=== PATIENT | female | born 1950 | race Caucasian/White ===

== ENCOUNTER → 2017-11-16 | Outpatient (CLI) | payer OTHER ==
[~2017-11-16] VITALS: Ht 167.6 cm; Wt 81.9 kg
[~2017-11-16] MED LIST: ACETAMINOPHEN-1 EAC1 PO; ACETAMINOPHEN325 M1 PO; ACIPHEX PO; ADVIL PM CAPLE1 EACH PO; ALEVE220 MG PO; ASPIR 8181 MG PO; BIOTIN1000 MCG PO; CENTRUM SILVER1 EAC4 PO; CIPRO250 M1 PO; CYFOLEX CAPSUL1 EACH PO; CYMBALTA60 MG PO; FISHOIL PO; GLUCOPHAGE500 MG PO; GLUCOTROL5 MG PO; IBUPROFEN PO; INDOMETHACIN 5050 MG PO; ISOMETHEPT-DIC1 EACH PO; JANUVIA100 MG PO; LODINE400 M1 PO; LORTAB PO; MELATONIN5 M1 PO; MOBIC7.5 MG PO; NORCO 5-325 TA1 EACH PO; NORFLEX100 MG PO; ORPHENADRINE C100 M2 PO; PAMELOR PO; PAMELOR25 MG PO; PREDNISONE 20 M20 MG PO; PROPRANOLOL PO; RELPAX PO; WOMEN'S 50 PLU1 EACH PO; ZANTAC 150MG T150 MG PO; [UNRECOGNIZED DRUG - OTHER] PO
--- NOTE | ~2017-11-16 | HPC ---
[facility] [place] [address] PAIN MANAGEMENT CONSULTATION Name: ADDISONJAYSON ROSE Room #: REG Sarthak Steven#: [id number] Admission: 11/16/17 Attend Phys: Zain Cabello DO Discharge: Date of : 50 Report #: [id number] THIS REPORT FOR: //name// CC: Claude Cabello The patient is a 67-year-old female, prior seen in pain clinic back in July for lumbar radiculopathy status post decompressive laminectomy, axial back pain, myofascial pain. The patient was started on Cymbalta and encouraged with physical activity including Saul Chi via [employer]. Returns to pain clinic today. She is having some ongoing lumbar radicular symptoms. She notes about 4-6 weeks ago without antecedent trauma. She developed pain, right anterior thigh, burning dysesthesia down to the foot. Physical exam shows a pleasant 67-year-old female, somewhat hard of hearing. Vital signs are stable as noted in the EMR. Rises from chair using armrests, antalgic gait. Significant decreased right leg strength to hip flexion, lower extremity extension and dorsiflexion about 3/5, left leg is much stronger 4-5/5. Patellar reflex is diminished on the right compared to the left. Straight leg raising negative, very significant tenderness with rotation of hips. Positive Lainey test, positive distraction, positive Gaenslen's, tenderness over the SI joint as well. ASSESSMENT: 1. Symptomatic lumbar radiculopathy status post decompressive laminectomy, right L3 radicular pain. 2. Component of sacroiliac mediated pain. RECOMMENDATIONS: 1. Right L3-L4 transforaminal epidural injection today. 2. Follow up in 2-3 weeks for reevaluation and consideration for bilateral SI joint injection if indicated clinically. PROCEDURE: Transforaminal lumbar epidural injection under fluoroscopy. PROCEDURE NOTE: After both written and informed consent was obtained including risk of spinal cord damage, infection, increased pain and paralysis, the patient agreed to proceed. The patient was taken to the fluoroscopy suite, placed in a prone position with appropriate abdominal bolstering. After sterile prep with ChloraPrep and sterile drape, a skin wheal with 1% Xylocaine was raised. A 22 gauge 4-1/2 inch epidural Tuohy needle was inserted. From an oblique approach into the posterior-superior aspect of the right L4-L5 neural foramen with continuous pressure on the glass syringe plunger for loss of resistance. Glass syringe was filled with 2 mL of 0.1 Xylocaine. The glass loss of resistance syringe was removed. A low volume extension tubing was connected, negative aspiration was accomplished for cerebrospinal fluid or blood. 1 mL of Omnipaque was injected which showed spread both within the epidural space and laterally [facility] [address] [place] [address] PAIN MANAGEMENT CONSULTATION Name: JAYSON JAIME Room #: REG ASHVIN Steven#: [id number] Admission: 11/16/17 Attend Phys: Zain Cabello DO Discharge: Date of : 50 Report #: [id number] along the nerve root. This was followed with 80 mg of triamcinolone plus 1 mL of 1.5% preservative-free Xylocaine. Needle was partially withdrawn, 0.5 mL of Xylocaine was injected to clear the needle and the needle was removed. The area was cleansed, band-aid was applied. The patient was allowed to ambulate to the recovery room, discharged in good and stable condition. <ELECTRONICALLY SIGNED> By: Zain Cabello DO 11/18/17 0721 1207 [id number] Zain Cabello DO /nt
[2017-11-16 09:51] VITALS: BP 126/76
== END | disposition home or self-care (01) ==
LOC: PAIN 06:51
DX: M54.16 Radiculopathy, lumbar region (principal); M53.3 Sacrococcygeal disorders, not elsewhere classified; M79.1 Myalgia; Z98.890 Other specified postprocedural states; Z79.891 Long term (current) use of opiate analgesic; Z88.8 Allergy status to other drugs, medicaments and biological substances; Z79.82 Long term (current) use of aspirin

== ENCOUNTER → 2017-12-03 | Outpatient (CLI) | payer OTHER ==
[~2017-12-03] VITALS: Ht 167.6 cm; Wt 81.3 kg
--- NOTE | ~2017-12-03 | HPC ---
[facility] [place] [place] [address] PAIN MANAGEMENT CONSULTATION Name: JAYSON JAIME Room #: REG ASHVIN Steven#: [id number] Admission: 12/03/17 Attend Phys: Zain Cabello DO Discharge: Date of : 50 Report #: [id number] THIS REPORT FOR: //name// CC: Claude Cabello The patient is a pleasant 67-year-old female, prior seen in the pain clinic for symptomatic lumbar radiculopathy. She was given a transforaminal L3-L4 epidural injection with incremental improvement of baseline pain. She still has some ongoing pain now in the lower right leg. The prior right L3 radicular symptoms are improving. She still has positive straight leg raise and limited flexion. Symptomatic lumbar radiculopathy with improvement of symptoms following initial injection (the patient notes a 60% relief ongoing, but does again note pain to be a 6 on a VAS primarily in the right low back and lower leg). She has not fallen since last visit. 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 Vital signs stable as noted in the EMR. BMI is 28.9 kg/m2. She is not on blood thinner, is not hypertensive, is not on opiate contract. She does not use tobacco products. ASSESSMENT: Symptomatic lumbar radiculopathy by clinical exam and history. RECOMMENDATIONS: Repeat epidural injection under fluoroscopy today, we will use a midline L3-L4 approach. Follow up in 4 weeks for reevaluation, cancel if doing well. PROCEDURE: Lumbar epidural injection under fluoroscopy. PROCEDURE NOTE: After both written and informed consent to include risk of spinal cord damage, increased pain, weakness and dural puncture, the patient was taken to the fluoroscopy suite, placed in the prone position. After sterile prep and drape, a skin wheal with lidocaine was raised. A 22-gauge epidural Tuohy needle was inserted in the midline at L3-L4 with good loss to resistance. Negative aspiration for cerebrospinal fluid or blood was noted. Then 1 mL of Omnipaque under biplanar fluoroscopy showed good spread within the epidural space. This was followed with 80 mg of triamcinolone plus 1 mL of 1.5% preservative-free Xylocaine, 0.5 mL Xylocaine was then injected to flush the needle; it was removed. The patient was monitored for an appropriate period of time and discharged in good and stable condition. <ELECTRONICALLY SIGNED> By: Zain Cabello DO 12/04/17 0725 1209 1302 Zain Cabello DO /nt
[2017-12-03 10:49] VITALS: BP 135/87
== END | disposition home or self-care (01) ==
LOC: PAIN 10:22
DX: M54.16 Radiculopathy, lumbar region (principal); G89.29 Other chronic pain; M19.90 Unspecified osteoarthritis, unspecified site; Z98.890 Other specified postprocedural states; Z79.891 Long term (current) use of opiate analgesic; Z88.8 Allergy status to other drugs, medicaments and biological substances; Z79.82 Long term (current) use of aspirin; Z79.899 Other long term (current) drug therapy

== ENCOUNTER → 2017-12-24 | Outpatient (CLI) | payer OTHER ==
[~2017-12-24] VITALS: Ht 167.6 cm; Wt 81.2 kg
--- NOTE | ~2017-12-24 | HPC ---
[facility] [place] [address] PAIN MANAGEMENT CONSULTATION Name: ADDISONJAYSON HAILY Room #: REG Sarthak Steven#: [id number] Admission: 12/24/17 Attend Phys: Zain Cabello DO Discharge: Date of : 50 Report #: [id number] THIS REPORT FOR: //name// CC: Claude Cabello HISTORY OF PRESENT ILLNESS: The patient is a 67-year-old female, prior seen in the pain clinic on 12/03/2017. We referred the patient for physical therapy and was given epidural injection for lumbar radicular pain. She returns to pain clinic today noting that the injection afforded no effective relief. She further, however, states that the right leg pain is essentially gone and that new pain is now in the left low back and buttock. She notes that she was actually doing well until she was doing exercises, plank but unfortunately, she is doing this on her bed. Head of the bed was not a firm base, she twisted and fell. When she fell, she had acute exacerbation of pain in the left low back. She notes pain is a 9 on VAS. She presented to [facility], they did x-rays, which showed no changes. She was started on high dose prednisone 20 mg 3 times a day, which she has taken for 2 days with no efficacy. She notes pain again continues at a 9 on a VAS and steady, sharp, constant, radiating into the left buttock and posterior thigh but not down below the leg. PHYSICAL EXAMINATION: GENERAL: Shows 67-year-old female, moderately hard of hearing. VITAL SIGNS: BMI is 28.9 kilograms per meter squared. Blood pressure is elevated 158/99, pulse 114 and respirations 16. MUSCULOSKELETAL: Rises from chair using armrest, markedly antalgic gait, ataxic. Exquisite tenderness over the left SI. Positive Lainey test. Positive Gaenslen's. Positive pelvic distraction test. Lower extremity strength is actually symmetric, though moving the right leg exacerbates the right SI pain. ASSESSMENT: Acute sacroiliac mediated pain. History of lumbar radiculopathy status post decompressive laminectomy, symptoms actually somewhat improved following epidural injection x 2. RECOMMENDATIONS: 1. We will trial hydrocodone 5/325 one tablet 2-3 times a day. The patient cautioned about daytime somnolence, or mental acuity changes, constipation, limit 45 tablets. 2. Left SI joint injection under fluoroscopy today. 3. Refer again for core stabilization due to SI joint dysfunction. PROCEDURE: Left SI joint injection under fluoroscopy. DESCRIPTION OF PROCEDURE: After written informed consent was obtained, the patient was taken to the fluoroscopy suite, placed in prone position. After sterile prep and drape, skin wheal with Xylocaine was raised. A 22-gauge stylet needle was placed to contact the inferior aspect of the left SI joint. Negative [address] [address] PAIN MANAGEMENT CONSULTATION Name: JAYSON JAIME Room #: REG [facility] Maurizio#: [id number] Admission: 12/24/17 Attend Phys: Zain Cabello DO Discharge: Date of : 50 Report #: [id number] aspiration was accomplished. A 1 mL of Omnipaque injected, which showed spread within the SI joint followed with 40 mg triamcinolone plus 2 mL of 0.5% preservative-free bupivacaine. Needle was removed. The area was cleansed, Band-Aids applied. The patient monitored for an appropriate period of time, discharged in good and stable condition. Fluoroscopy time was under 15 seconds. <ELECTRONICALLY SIGNED> By: Zain Cabello DO 12/25/17 0845 [id number] Zain Cabello DO /nt
[2017-12-24 14:07] VITALS: BP 158/99
== END | disposition home or self-care (01) ==
LOC: PAIN 07:16
DX: M53.3 Sacrococcygeal disorders, not elsewhere classified (principal); M54.16 Radiculopathy, lumbar region; Z98.890 Other specified postprocedural states

== ENCOUNTER → 2018-01-08 | Outpatient (CLI) | payer OTHER ==
[~2018-01-08] VITALS: Ht 167.6 cm; Wt 81.6 kg
--- NOTE | ~2018-01-08 | HPC ---
[facility] [place] [address] PAIN MANAGEMENT CONSULTATION Name: JAYSON JAIME Room #: REG ASHVIN Steven#: [id number] Admission: 01/08/18 Attend Phys: Zain Cabello DO Discharge: Date of : 50 Report #: [id number] THIS REPORT FOR: //name// CC: Claude Cabello DATE OF SERVICE: 01/08/2018 PAIN CLINIC NOTE The patient is a 67-year-old female, prior seen in the pain clinic on 12/24/2017. She had had 2 lumbar epidural injections, on 11/16/2017 and again on 12/03/2017 with good improvement of radicular symptoms. Had some left SI mediated pain. We did a left SI joint injection at last visit and referred the patient to physical therapy. Returns to pain clinic today. She is continuing to do physical therapy exercises, SI joint is improving. She does, however, still have some ongoing radicular pain, low back, left leg down to the foot. She rates it as 7 on a VAS exacerbated with standing and walking, is getting some relief with heat and stretching. She is continuing to take rare hydrocodone as well as etodolac p.o. and Cymbalta daily. She rises from the chair using the armrest. BMI is 29.1 kilograms per meter squared. Gait is tandem. Vital signs are stable as noted in the EMR. Uses a cane for balance. Modestly antalgic gait favoring the left leg. Positive straight leg raise at 30 degrees. Diffuse tenderness across the low back. SI mediated pain seems to be abated presently. The patient has fallen, she fell after physical therapy several weeks ago. This did seem to exacerbate the radicular symptoms. I reviewed the MRI from 03/31/2016, she does have degenerative changes, greatest at L5-S1 with focal disk protrusion at this level. ASSESSMENT: Symptomatic lumbar radiculopathy, clinical exam and history. RECOMMENDATIONS: 1. Epidural injection under fluoroscopy today at L5-S1. 2. Renew hydrocodone 5/325, limit 60 tablets. Directions 1 tablet 2-3 times a day as needed for pain, wean as able. 3. Continue physical therapy. 4. Follow up simply p.r.n. PROCEDURE: Lumbar epidural injection under fluoroscopy. [address] [address] PAIN MANAGEMENT CONSULTATION Name: JAYSON JAIME Room #: REG Sarthak Steven#: [id number] Admission: 01/08/18 Attend Phys: Zain Cabello DO Discharge: Date of : 50 Report #: [id number] PROCEDURE NOTE: After both written and informed consent to include risk of spinal cord damage, increased pain, weakness and dural puncture, the patient was taken to the fluoroscopy suite, placed in the prone position. After sterile prep and drape, a skin wheal with lidocaine was raised. A 22-gauge epidural Tuohy needle was inserted in the midline at L5-S1 with good loss to resistance. Negative aspiration for cerebrospinal fluid or blood was noted. Then 1 mL of Omnipaque under biplanar fluoroscopy showed good spread within the epidural space. This was followed with 80 mg of triamcinolone plus 1 mL of 1.5% preservative-free Xylocaine, 0.5 mL Xylocaine was then injected to flush the needle; it was removed. The patient was monitored for an appropriate period of time and discharged in good and stable condition. <ELECTRONICALLY SIGNED> By: Zain Cabello DO 01/11/18 0925 [id number] [id number] Zain Cabello DO /nt
[2018-01-08 12:45] VITALS: BP 135/90
== END | disposition home or self-care (01) ==
LOC: PAIN 07:12
DX: M54.16 Radiculopathy, lumbar region (principal); M53.3 Sacrococcygeal disorders, not elsewhere classified